=== PATIENT | female | born 1980 | race Caucasian/White ===

== ENCOUNTER 2016-04-28 10:05 | Emergency (ER) | payer BC ==
[2016-04-28 10:11] VITALS: BP 105/61; PULSE 113; RESP 16; TEMP 98.6; O2SAT 97
--- NOTE | 2016-04-28 10:22 | UCPHY ---
H & P Time Seen by Provider: 04/28/16 10:20 Patient Type: New HPI/ROS: CHIEF COMPLAINT: Sore throat, sinus drainage HISTORY OF PRESENT ILLNESS: 35-year-old female presents to Urgent Care reporting that yesterday she developed a sore throat. This morning she had significant throat discomfort and postnasal drainage. She is also complaining of fullness in her right maxillary sinus and feels like she may have a sinus infection. No headache. No fever. No cough or shortness of breath. Patient moved to [place] this past week. Her 2 children have been recently diagnosed with influenza the patient has been taking Tamiflu. 1 child also has strep throat and on the antibiotic. Patient herself is also been taking Tamiflu to prevent influenza. REVIEW OF SYSTEMS: Aside from elements discussed in the HPI, a comprehensive 10-point review of systems was reviewed and is negative. PAST MEDICAL HISTORY: Denies. Tonsillectomy. SOCIAL HISTORY: Nonsmoker. VITAL SIGNS: see nurse's notes. GENERAL: Well-developed, well-nourished, in no acute distress. HEENT: Atraumatic Eyes: PERRL, EOMI, no conjunctival injection. Tenderness to palpation over the right maxillary sinus. Ears: TM clear bilaterally. Nose : No discharge. Mouth: moist mucous membranes. Pharynx: Mild erythema. Uvula is midline. NECK: Supple, no adenopathy, no meningismus, no tenderness. Negative Kernig's and Brudzinski's. LUNGS: Clear to auscultation bilaterally, no wheezes, rhonchi or rales. CARDIAC: Regular rate and rhythm, no rubs, murmurs or gallops. ABDOMEN: Soft, nontender, bowel sounds normal. BACK: No CVA tenderness. EXTREMITIES: Normal, no edema, FROM. NEURO: Alert and oriented, grossly nonfocal. SKIN: Warm and dry, no rash. PSYCHIATRIC: Normal mentation, no agitation. Smoking Status: Never smoked Constitutional: Initial Vital Signs Temperature (C) 37 C 04/28/16 10:06 Heart Rate 113 H 04/28/16 10:06 Respiratory Rate 16 04/28/16 10:06 Blood Pressure 105/61 04/28/16 10:06 O2 Sat (%) 97 04/28/16 10:06 O2 Delivery Mode Room Air Allergies/Adverse Reactions: No Known Allergies Allergy (Unverified 04/28/16 10:11) Home Medications: Medication Instructions Recorded Control Pill 04/28/16 Medical Decision Making ED Course/Re-evaluation: Strep screen: Negative Patient given instructions for [id number] symptom relief. Differential Diagnosis: Differential diagnosis of the patient's symptom complex was considered including but not limited to viral upper respiratory infection, viral pharyngitis, strep pharyngitis, bacterial pharyngitis, peritonsillar abscess, tonsillitis, epiglottitis, influenza, and mononucleosis. - Data Points Laboratory Results: 04/28/16 04/28/16 Unknown 10:30 Group A Strep Screen NEGATIVE (NEGATIVE) Group A Strep DNA Pending Departure - Departure Disposition: Home, Routine, Self-Care Clinical Impression: Pharyngitis Qualifiers: Pharyngitis/tonsillitis etiology: unspecified etiology Qualified Code(s): J02.9 - Acute pharyngitis, unspecified Sinusitis Qualifiers: Sinusitis location: maxillary Chronicity: acute Recurrence: non-recurrent Qualified Code(s): J01.00 - Acute maxillary sinusitis, unspecified Upper respiratory infection Qualifiers: URI type: unspecified viral URI Qualified Code(s): J06.9 - Acute upper respiratory infection, unspecified; B97.89 - Other viral agents as the cause of diseases classified elsewhere Condition: Good Instructions: Pharyngitis (ED), Sinusitis (ED) Additional Instructions: Your rapid strep screen is negative. If your strep DNA test returns positive, you will be contacted. For your sore throat, I suggest ibuprofen 400-600 mg every 6-8 hours to help with pain and swelling. Salt water gargles and throat lozengers will also be helpful. For your sinus fullness and pain, I suggest Flonase which is available over the counter as well as an oral decongestant such as Sudafed. If he develops significant runny nose, I suggest an antihistamine. Claritin or Bianca are nonsedating antihistamines. Please drink plenty of fluids and get plenty of rest. Please continue taking your Tamiflu. You been given referral to primary care physician. You may follow up if you're not improving as expected. Referrals: Martin Tello MD [Medical Doctor] - As per Instructions - PQRS PQRS Measurement: Not applicable
== END 2016-04-28 11:25 | disposition home or self-care (01) ==
LOC: CED 10:05
DX: J02.9 Acute pharyngitis, unspecified (principal); J01.00 Acute maxillary sinusitis, unspecified; J06.9 Acute upper respiratory infection, unspecified
CPT/HCPCS: 87880-PO; 99204-PO; G0463-PO

== ENCOUNTER 2017-10-15 05:51 | Observation (INO) | payer BC ==
--- NOTE | 2017-10-14 08:48 | GHP ---
[f rep st] PREOP HISTORY AND PHYSICAL DATE OF ADMISSION: 10/15/2017 IDENTIFYING DATA: This is a 37-year-old with a right-sided thyroid nodule. This was 1st noted on ro utine physical exam. Thyroid-stimulating hormone was within normal limits on 08/16/2017. She had a thyroid ultrasound done at the [facility] on 08/27/2017 which showed a 2.9 cm x 1.8 cm heterogen eous nodule in the right. There are no microcalcifications. She has perhaps a small 3.5 mm nodule o n the left. 09/08/2017, she underwent an ultrasound-guided fine needle aspiration on the right and w as suspicious for papillary carcinoma. She presents for right-sided hemithyroidectomy and possible t otal thyroidectomy. PAST MEDICAL HISTORY: Otherwise in good health. Does have a history of migraine headaches and tonsi llectomy. SOCIAL HISTORY: Drinks 1 alcohol a week. ALLERGIES: No known drug allergies. PHYSICAL EXAM: GENERAL: She is in no acute distress. Mood is appropriate was strong. Gait is good. Alert and oriented x3. SKIN: Shows no highs. MOUTH: The oral cavity and oropharynx show no mucos al lesions. NECK: Carotids are palpably benign. Neck shows a 2 cm palpable right-sided thyroid nodu le. LUNGS: Clear without wheezing. HEART: Regular rate and rhythm. No murmurs, gallops, or rubs. IMPRESSION: Right-sided thyroid nodule with needle biopsy suspicious for papillary carcinoma. RECOMMENDATIONS: Will take her to the operating room for a right-sided hemithyroidectomy with possib le total thyroidectomy pending frozen sections. I had a detailed discussion with Joellen regarding th e risks of bleeding, infection, anesthesia, damage to recurrent laryngeal nerves and permanent hoarse ness. Talked about the risks of damage to the parathyroid glands and need for permanent calcium repl acement. Talked about the need for Synthroid replacement. We talked about potential need for comple tion thyroidectomy if we are unable to make a diagnosis on frozen section. Talked about the benefits of obtaining the tissue and removing the nodule and treating it if it is a cancer. Talked about the alternatives of a 2nd opinion. The pros and cons of either hemithyroidectomy or a total thyroidecto my were reviewed. She understands and agrees to proceed and all questions were answered. /[id number]/MODL
[2017-10-15] MEDS ORDERED: ceFAZolin 2 GM/DEXTROSE 100 ML IV ONE (06:09)
[2017-10-15] MEDS ORDERED: LIDOCAINE 1% 2 ML INJ ID PRN (06:10)
[2017-10-15] MEDS ORDERED: LR 1,000 ML IV ONE (06:10)
[2017-10-15] MEDS ORDERED: EPINEPHrine 1 MG/ML INJ ONE (06:32)
[2017-10-15] MEDS ORDERED: LIDOCAINE 1% 300 MG/30 ML SDV ONE (06:32)
[2017-10-15] MEDS ORDERED: LIDO/EPI 1% **for epidural** 30 ML SDV ONE (06:33)
--- NOTE | 2017-10-15 06:47 | PDHPUP ---
History & Physical Update H&P update statement: This history and physical update is based on an assessment of the patient which was completed after admission or registration (within 24 hours), but prior to the surgery/procedure. H&P update: H&P reviewed & patient examined (no change), no change in patient's condition since H&P completed
--- NOTE | 2017-10-15 06:54 | PDANEPAE ---
ANE Past Medical History - Cardiovascular History Hx Hypertension: No Hx Arrhythmias: No Hx Chest Pain: No Hx Coronary Artery / Peripheral Vascular Disease: No Hx CHF / Valvular Disease: No Hx Palpitations: No - Pulmonary History Hx COPD: No Hx Asthma/Reactive Airway Disease: No Hx Recent Upper Respiratory Infection: No Hx Oxygen in Use at Home: No Hx Sleep Apnea: No Sleep Apnea Screening Result - Last Documented: Negative - Neurologic History Hx Cerebrovascular Accident: No Hx Seizures: No Hx Dementia: No - Endocrine History Hx Diabetes: No - Renal History Hx Renal Disorders: No - Liver History Hx Hepatic Disorders: No - Neurological & Psychiatric Hx Hx Neurological and Psychiatric Disorders: No - Cancer History Hx Cancer: No - Congenital Disorder History Hx Congenital Disorders: No - GI History Hx Gastrointestinal Disorders: No - Other Health History Other Health History: THYROID NODULES/BX SUSPICIOUS FOR CA - Chronic Pain History Chronic Pain: No - Surgical History Prior Surgeries: TONSILLECTOMY. RT KNEE ACL 1997 ANE Review of Systems Review of Systems: - Exercise capacity METS (RN): 5 METS ANE Patient History - Allergies Allergies/Adverse Reactions: No Known Allergies Allergy (Verified 09/29/17 10:14) - Home Medications Home Medications: Carboxymethylcellulose 1% [Refresh Celluvisc (*)] 1 drop EACHEYE DAILY PRN 09/29 [Last Taken 10/15/17 05:00] Tretinoin [Retin-A] 1 alvino TP Q2D 09/29/17 [Last Taken 10/13/17] - NPO status NPO Since - Liquids (Date): 10/14/17 NPO Since - Liquids (Time): 21:00 NPO Since - Solids (Date): 10/14/17 NPO Since - Solids (Time): 18:30 - Smoking Hx Smoking Status: Never smoked - Family Anes Hx Family Hx Anesthesia Complications: NEG ANE Labs/Vital Signs - Vital Signs Blood Pressure: 107/77 Heart Rate: 68 Respiratory Rate: 16 O2 Sat (%): 99 Height: 170.18 cm Weight: 61.235 kg ANE Physical Exam - Airway Neck exam: FROM Mallampati Score: Class 2 Mouth exam: normal dental/mouth exam - Pulmonary Pulmonary: no respiratory distress - Cardiovascular Cardiovascular: regular rate and rhythym - ASA Status ASA Status: I ANE Anesthesia Plan Anesthesia Plan: general endotracheal anesthesia
[2017-10-15] MEDS ORDERED: MIDAZOLAM 2 MG/2 ML VIAL ONE (06:59)
[2017-10-15] MEDS ORDERED: PROPOFOL/EMULSION 500 MG/50 ML BOTTLE IV ONE ×2 (07:00→07:34)
[2017-10-15] MEDS ORDERED: DEXAMETHASONE 4 MG/ML VIAL ONE ×2 (07:00)
[2017-10-15] MEDS ORDERED: LIDOCAINE 2% 100 MG/5 ML SYR ONE (07:00)
[2017-10-15] MEDS ORDERED: METOCLOPRAMIDE 10 MG/2 ML VIAL ONE (07:00)
[2017-10-15] MEDS ORDERED: ROCURONIUM 50 MG/5 ML VIAL ONE (07:00)
[2017-10-15] MEDS ORDERED: NEOSTIGMINE METHYLSULFATE 5 MG/5 ML SYR ONE (08:48)
[2017-10-15] MEDS ORDERED: ONDANSETRON 4 MG/2 ML VIAL IVP PRN ×2 (09:10→09:20)
[2017-10-15] MEDS ORDERED: HYDROCODONE/APAP 5/325 TAB PO PRN (09:10)
[2017-10-15] MEDS ORDERED: D5W LR 1,000 ML IV SCH (09:15)
[2017-10-15] MEDS ORDERED: NALOXONE HCL 0.4 MG/ML INJ IVP PRN (09:20)
[2017-10-15] MEDS ORDERED: fentaNYL 100 MCG/2 ML INJ IVP PRN (09:20)
[2017-10-15] MEDS ORDERED: ALBUTEROL 3 ML DEYVIAL IH PRN (09:20)
--- NOTE | 2017-10-15 09:21 | POSTANESTH ---
Post Anesthetic Evaluation Cardiovascular Status: Similar to Pre-Op Cond Respiratory Status: Similar to Pre-op Cond. Level of Consciousness/Mental Status: Mildly Sleepy, Arousable Pain Control: Adequate, Prn Tx Ordered Nausea/Vomiting Control: Adequate, Prn Tx Ordered Complications Possibly Related to Anesthesia: None Noted
--- NOTE | 2017-10-15 09:34 | GOP ---
[f rep st] OPERATIVE REPORT DATE OF OPERATION: 10/15/2017 SURGEON: Shimon Martinez MD ON SITE COORDINATOR: Alannah Khoury, Physician [employer] ANESTHESIA: General endotracheal. PREOPERATIVE DIAGNOSIS: Right-sided thyroid nodule. POSTOPERATIVE DIAGNOSIS: Right-sided thyroid nodule. PROCEDURE PERFORMED: Right-sided hemithyroidectomy with isthmusectomy. FINDINGS: 1. Right-sided thyroid nodule, follicular, on frozen section. 2. Good identification of the parathyroids on the right and recurrent laryngeal nerve. SPECIMENS: As above. ESTIMATED BLOOD LOSS: 25 mL. DESCRIPTION OF PROCEDURE: The patient was placed in a supine position and orally endotracheally intu bated. The. We had marked her right neck in the preoperative holding area. An incision was marked in her relaxed skin tension crease in the neck. She was sterilely prepped and draped with a non iodi ne based solution. A 15 blade scalpel was used to come through the skin and the platysma. Subplatys mal flaps were elevated. The straps were divided in the midline. Her left gland is palpably benign but we did minimal dissection on the left. On the right she has a palpable nodule. We dissected the strap muscles away from the gland using traction countertraction technique. We did identify the rig ht superior parathyroid and I believe the inferior parathyroid as well. We came across the isthmus w ith the hemostats and a stick tie was placed. We did identify the right recurrent laryngeal nerve. We kept this under direct visualization and dissected the gland away. Specimen was sent to Pathology and on frozen section analysis was preliminarily read as a follicular lesion. We therefore deferred to permanent section analysis. The wound was copiously irrigated and suctioned. A drain was placed deep to the strap muscles and se wn into position with 3-0 nylon. The straps and platysmal were reapproximated with 3-0 chromic. The skin was closed with running 5-0 nylon. A pressure dressing was applied. She tolerated the procedu re well, and was in good condition at the end of the procedure. /[id number]/MODL
--- NOTE | 2017-10-15 14:55 | SOAPPROG ---
SOAP Progress Note Assessment/Plan: pt s/p hemithyroidectomy. doing well. HAs severe sore throat, mild neck discomfort. neck- dressing in palce. Plan:plan for discharge tomorrow morning. 10/15/17 14:54 Objective: Vital Signs Temp Pulse Resp BP Pulse Ox 37.0 C 87 21 H 103/75 93 10/15/17 12:30 10/15/17 12:30 10/15/17 12:30 10/15/17 12:30 10/15/17 12:30 10/14/17 10/15/17 10/16/17 05:59 05:59 05:59 Intake Total 950 Output Total 825 Balance 125 - Pending Discharge Pending Discharge Within 24 Hours: Yes Pending Discharge Date: 10/16/17 Pending Discharge Time: 11:00 ICD10 Worksheet Patient Problems: Problems Problem Status Onset Thyroid adenoma Acute - ICD10 Problem Qualifiers (1) Thyroid adenoma
[2017-10-15] MEDS: HYDROCOD/APAP 7.5/325 IN 15ML UDCUP PO PRN ×2 (15:04→19:30)
[2017-10-16] MEDS: HYDROCOD/APAP 7.5/325 IN 15ML UDCUP PO PRN ×2 (02:15→08:36)
[2017-10-16 07:33] VITALS: BP 111/80
--- NOTE | 2017-10-16 10:27 | PDDCSUM ---
Discharge Summary Discharge Summary: Pt POD #1 s/p hemithyroidectomy by Dr. Martinez. doing well. pain controlled. No hoarseness. Dressing removed. Will keep drain in until end of day or tomorrow. Follow up in clinic as planned.
== END 2017-10-16 09:37 | disposition home or self-care (01) ==
LOC: F3N 05:51 → F3E 10:33
PROVIDERS: ADMIT Otolaryngology; ATTEND Otolaryngology
PROC: 0GTH0ZZ Resection of Right Thyroid Gland Lobe, Open Approach (ICD-10-PCS; principal; 2017-10-15 07:15)
DX: C73 Malignant neoplasm of thyroid gland (principal)
CPT/HCPCS: 60220; G0378; J0171; J0690; J1100; J2001; J2250; J2270; J2405; J2704; J2710; J2765